=== PATIENT | female | born 1950 | race Caucasian/White ===

== ENCOUNTER 2021-04-13 09:30 | Emergency (ER) | payer MEDICARE ==
[2021-04-13] MEDS ORDERED: Triamcinolone Acetonide 40 MG/ML 1 ML SDV INJECT PRN (10:12)
[2021-04-13] MEDS ORDERED: Bupivacaine 0.5% 10 ML SDV INJECT ONE (10:13)
--- NOTE | 2021-04-13 10:40 | EDM.PDOC ---
ED HPI GENERAL MEDICAL PROBLEM - General Chief Complaint: Lower Extremity Injury/Pain Stated Complaint: SHARP PAIN IN LEFT HIP AND LEG IS NUMB Time Seen by Provider: 04/13/21 10:00 Source of Information: Reports: Patient History Limitations: Reports: No Limitations - History of Present Illness INITIAL COMMENTS - FREE TEXT/NARRATIVE: 70-year-old female with a left hip pain for the past several weeks, over the past few days she has had some increased pain in her groin and also some tingling down the lateral aspect of her leg. No specific trauma, she did not fall down, no fevers or chills, no joint pains or swelling. She did recently have knee injections but those are doing much better. Onset: Gradual Duration: Week(s): (2 to 3 weeks) Location: Reports: Lower Extremity, Left Associated Symptoms: Reports: No Other Symptoms Left Hip Pain Score (Numeric/FACES): 5 - Related Data Allergies Allergy/AdvReac Type Severity Reaction Status Date / Time No Known Allergies Allergy Verified 04/13/21 09:53 Home Meds: Home Meds NIFEdipine [Nifedipine ER] 90 mg PO DAILY 04/04/19 [History] Venlafaxine HCl [Venlafaxine ER] 75 mg PO DAILY 04/04/19 [History] Albuterol [Ventolin HFA] 2 puff INH Q6H PRN 04/05/19 [History] Lansoprazole [Prevacid] 30 mg PO DAILY 04/05/19 [History] Simvastatin 20 mg PO DAILY 04/05/19 [History] Acetaminophen 1,000 mg PO TID PRN 04/13/21 [History] Past Medical History HEENT History: Reports: Impaired Vision Cardiovascular History: Reports: None Respiratory History: Reports: None Gastrointestinal History: Reports: None Genitourinary History: Reports: None 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: Musculoskeletal History: Reports: Fracture, Osteoarthritis Other Musculoskeletal History: right wrist FX Neurological History: Reports: Migraines Psychiatric History: Reports: None Endocrine/Metabolic History: Reports: None Hematologic History: Reports: None Immunologic History: Reports: None Oncologic (Cancer) History: Reports: None Dermatologic History: Reports: None - Infectious Disease History Infectious Disease History: Reports: Chicken Pox, Measles, Mononucleosis - Past Surgical History HEENT Surgical History: Reports: None Social & Family History - Tobacco Use Tobacco Use Status *Q: Never Tobacco User - Caffeine Use Caffeine Use: Reports: None - Recreational Drug Use Recreational Drug Use: No Review of Systems - Review of Systems Review Of Systems: See Below Constitutional: Denies: Fever Respiratory: Denies: Shortness of Breath Cardiovascular: Denies: Chest Pain Skin: Reports: No Symptoms. Denies: Rash (No rash over painful area) Neurological: Reports: Paresthesia (Occasional paresthesias down the lateral aspect of the left leg) Psychiatric: Reports: No Symptoms ED EXAM, GENERAL - Physical Exam Exam: See Below Exam Limited By: No Limitations General Appearance: Alert, No Apparent Distress Head: Atraumatic Respiratory/Chest: Lungs Clear Cardiovascular: Regular Rate, Rhythm Extremities: Other (Very tender over the left lateral hip especially over the greater trochanteric bursa area. No significant palpation tenderness to the groin, just mild discomfort with passive range of motion of the left hip but painful abduction against resistance. No distal edema.) Course - Vital Signs Last Recorded V/S: Last Vital Signs Temp 97.6 F 04/13/21 10:00 Pulse 86 04/13/21 10:00 Resp 16 04/13/21 10:00 BP 115/59 L 04/13/21 10:00 Pulse Ox 96 04/13/21 10:00 - Orders/Labs/Meds Meds: Medications Discontinued Medications Generic Name Dose Route Start Last Admin Trade Name Hayley PRN Reason Stop Dose Admin Bupivacaine HCl 10 ml 04/13/21 10:13 04/13/21 10:27 Bupivacaine 0.5% 10 Ml Sdv INJECT 04/13/21 10:14 10 ml ONETIME ONE Administration Triamcinolone Acetonide 40 mg 04/13/21 10:12 04/13/21 10:27 Triamcinolone Acetonide 40 Mg/Ml 1 Ml Sdv INJECT 40 mg ASDIRECTED PRN Administration Pain (moderate 4-6) - Re-Assessments/Exams Free Text/Narrative Re-Assessment/Exam: 04/13/21 12:25 The lateral left hip was sterilized with Betadine, and 40 mg of Kenalog along with 10 cc of 0.5% Marcaine was injected into the lateral bursa and the surrounding soft tissue in a fan distribution and massaged in thoroughly. A Band-Aid was applied, she had markedly less pain. I encouraged her to take some anti-inflammatories for the next few days, increase activity as tolerated, and return if worsening despite treatment. Departure - Departure Time of Disposition: 10:44 Disposition: Home, Self-Care 01 Clinical Impression: Greater trochanteric bursitis of left hip - Discharge Information Instructions: Hip Bursitis, [id number] Referrals: PCP,None [Primary Care Provider] - Forms: ED Department Discharge Additional Instructions: 2 Aleve twice a day for 3 to 4 days would be beneficial and safe. Increase activity as tolerated, return in 2 to 3 days if not improving satisfactorily. Return sooner if worsening or concerns. Sepsis Event Note (ED) - Evaluation Sepsis Screening Result: No Definite Risk - Focused Exam Vital Signs: Vital Signs Temp Pulse Resp BP Pulse Ox 04/13/21 10:00 97.6 F 86 16 115/59 L 96 04/13/21 09:45 97.6 F 86 16 115/59 L 96
== END 2021-04-13 10:44 | disposition home or self-care (01) ==
LOC: JP.ED 09:30
DX: M70.62 Trochanteric bursitis, left hip (principal); Z79.899 Other long term (current) drug therapy
CPT/HCPCS: 20610; 99283; J3301; J3490